=== PATIENT | female | born 1955 | race Caucasian/White ===

== ENCOUNTER 2018-08-06 18:07 | Emergency (ER) | payer OTHER ==
[~2018-08-06] VITALS: Ht 172.7 cm; Wt 124.3 kg
[2018-08-06 18:19] VITALS: Ht 172.7 cm; Wt 124.3 kg
[2018-08-06 20:16] VITALS: BP 152/85
== END 2018-08-06 20:16 | disposition home or self-care (01) ==
LOC: ED 18:07
DX: I10 Essential (primary) hypertension (principal); F41.9 Anxiety disorder, unspecified; E11.9 Type 2 diabetes mellitus without complications; E78.00 Pure hypercholesterolemia, unspecified
CPT/HCPCS: 82962; J7030